=== PATIENT | female | born 1945 | race Asian ===

== ENCOUNTER 2017-01-24 15:10 | Emergency (ER) | payer MEDICARE, OTHER ==
[~2017-01-24] VITALS: Ht 157.5 cm; Wt 61.2 kg
[2017-01-24] MEDS ORDERED: amLODIPine BESYLATE 10 MG TABLET PO ONE (16:15)
--- NOTE | 2017-01-24 16:16 | ED.ADGEN ---
Past Medical History Past Medical History: High Cholesterol, Hypertension Past Surgical History: Other Additional Past Surgical Histo: thyroidectomy, leg surgery Alcohol Use: None Drug Use: None Adult General Chief Complaint Chief Complaint: HYPERTENSION HPI HPI Patient is a 71 year old woman, history of hypertension, hypercholesterolemia, hypothyroidism, who presents to the emergency department with a complaint of hypertension. Patient states that she was seen at [facility] this morning for cataract surgery, at that time her blood pressure was noted to be elevated, initially 205/95, then 233/102, and then one a , and she was sent to the emergency department for evaluation as they were unable to do the surgery due to her hypertensive state. Patient denies any complaints at this time, she states that she will "sometimes have some chest pain in the morning", but none today or currently, denies any weakness numbness or tingling, any vision changes aside from the block the blurriness from her cataracts, any headache, any nausea or vomiting, or any other complaints. She states she feels fine at this time, she states she has an appointment to follow-up with her doctor on 06 February. She states that she did take her metoprolol and her lisinopril this morning as directed. Review of Systems Review of Systems Constitutional: Denies fever or chills. [] Eyes: Denies change in visual acuity. [] HENT: Denies nasal congestion or sore throat. [] Respiratory: Denies cough or shortness of breath. [] Cardiovascular: Denies chest pain or edema. [] GI: Denies abdominal pain, nausea, vomiting, bloody stools or diarrhea. [] : Denies dysuria. [] Musculoskeletal: Denies back pain or joint pain. [] Integument: Denies rash. [] Neurologic: Denies headache, focal weakness or sensory changes. [] Endocrine: Denies polyuria or polydipsia. [] Lymphatic: Denies swollen glands. [] Psychiatric: Denies depression or anxiety. [] Current Medications Current Medications Current Medications Medications (Trade) Dose Ordered Sig/Genoveva Start Time Stop Time Status Last Admin Dose Admin Amlodipine Besylate (Norvasc) 10 mg 1X ONCE 01/24/17 16:15 01/24/17 16:16 DC 01/24/17 16:40 10 MG Hydrochlorothiazide (Microzide) 12.5 mg DAILY 01/25/17 09:00 01/25/17 09:00 DC Allergies Allergies Allergies Coded Allergies Type Severity Reaction Last Updated Verified No Known Drug Allergies 01/24/17 No Physical Exam Physical Exam Constitutional: Well developed, well nourished, no acute distress, non-toxic appearance. [] HENT: Normocephalic, atraumatic, bilateral external ears normal, oropharynx moist, no oral exudates, nose normal. [] Eyes: PERRLA, EOMI, conjunctiva normal, no discharge. [] Neck: Normal range of motion, no tenderness, supple, no stridor. [] Cardiovascular:Heart rate regular rhythm, no murmur, S1, S2, rubs or gallops. [] Lungs & Thorax: Bilateral breath sounds clear to auscultation, no wheezing, rhonchi, rales. No chest wall crepitus or tenderness. [] Abdomen: Bowel sounds normal, soft, no tenderness, no masses, no pulsatile masses. [] Skin: Warm, dry, no erythema, no rash. [] Back: No tenderness, no CVA tenderness. [] Extremities: No tenderness, no cyanosis, no clubbing, ROM intact, no edema. Negative Homans sign. [] Neurologic: Alert and oriented X 3, normal motor function, normal sensory function, no focal deficits noted. [] Psychologic: Affect normal, judgement normal, mood normal. [] Current Patient Data Vital Signs Vital Signs Date Time Temp Pulse Resp B/P Pulse Ox O2 Delivery O2 Flow Rate FiO2 01/24/17 17:27 50 16 198/94 100 Room Air 01/24/17 15:17 98.4 98.4 EKG EKG ECG: Rhythm strip: Sinus rhythm, heart rate of 51, no ectopy. As interpreted by me. [] Radiology/Procedures Radiology/Procedures Not indicated. [] Course & Med Decision Making Course & Med Decision Making Pertinent Labs and Imaging studies reviewed. (See chart for details) Patient with asymptomatic hypertension in the emergency department, blood pressure, 212/91 at time my evaluation, heart rate in the low 50s, to sinus bradycardia on the monitor. Patient denies any complaints currently, any complaints this morning. She states that she would like to be old follow-up with her doctor. I did discuss with the patient and her at bedside evaluation the ED versus an outpatient evaluation, at this point we all agree that outpatient evaluation was warranted as she has ache appointment coming up with her doctor and no complaints. I did speak with Dr. jorge, who states the patient's last blood pressure was 150/80, and the patient has had difficulty blood pressure control previously. She requested the patient's medication be adjusted, lisinopril and metoprolol be discontinued, and the patient be initiated on Tribenzor, with plan for the patient to be seen tomorrow at 1 PM by her nurse practitioner in the office. At this time although we do not have this combination medication, agreeable to give the patient amlodipine 10 mg, hydrochlorothiazide 12.5 mg, with a goal of lowering the patient's blood pressure, but not to aggressively as again she is asymptomatic in the emergency department, and she may have been existing in this hypertensive state without her knowledge our knowledge for some time. I did discuss this with patient and family at bedside, they are agreeable this plan, patient is anxious to be discharged home at this point. Patient did receive the medications as stated, repeat blood pressure was 198/95, she remains asymptomatic. She was given clear and detailed return precautions, medication instructions and return instructions , with which she did voice understanding and agreement. Patient discharged home in stable condition with plan to follow-up with her PCP tomorrow 1 PM, with prescription for Tribenzor, to discontinue her metoprolol and her lisinopril until she is further instructed, and to return to the ED for concerning symptoms if they develop. Dragon Disclaimer Dragon Disclaimer This electronic medical record was generated, in whole or in part, using a voice recognition dictation system. Departure Impression: Primary Impression: Hypertension Disposition: 01 HOME, SELF-CARE Condition: IMPROVED Scripts Olmesartan/Amlodipin/Hcthiazid (Tribenzor 40-10-25 Mg Tablet)1 Each Tablet1 Tab PO DAILY #30 TAB Ref 0 Prov:CHING PASTRANA DO 01/24/17 CHING PASTRANA DO Jan 24, 2017 16:16
[2017-01-24 17:27] VITALS: BP 198/94
[2017-01-24] MEDS ORDERED: OLME1TAB35 PO (17:54)
--- NOTE | 2017-01-25 07:02 | EKG ---
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
[2017-01-25] MEDS ORDERED: HYDROCHLOROTHIAZIDE 12.5 MG CAPSULE. PO SCH (09:00)
== END 2017-01-24 18:04 | disposition home or self-care (01) ==
LOC: ER 15:10
DX: I10 Essential (primary) hypertension (principal); E78.00 Pure hypercholesterolemia, unspecified
CPT/HCPCS: 93005; 99284

== ENCOUNTER → 2021-03-11 | Outpatient (CLI) | payer MEDICARE, MEDICAID ==
[2021-02-21 13:42] VITALS: BP 166/89
[~2021-03-11] MED LIST: AMLO-186 PO; CALC0.25 PO; CARV12.511 PO; CLON-77 PO; DOXY100T PO; LEVO75CA4 PO; LOVA40TA2 PO; MECL-75 PO; OLME1TAB23 PO; OLME1TAB35 PO; ONDA4TAB12 PO; OXYB5TAB10 PO; SERT-267 PO
--- NOTE | 2021-03-11 13:17 | RAD ---
EXAM: PET/CT SKULL BASE THROUGH MID THIGH. HISTORY: Lung cancer. TECHNIQUE: CT of the skull base through the mid thighs was performed for the purposes of attenuation correction. 12.3 mCi F-18 fluorodeoxyglucose were administered intravenously. Blood glucose level at the time of administration was 115 mg/dL. After an uptake period, positron emission tomography of the skull base through the mid thighs was performed. The PET and CT data were fused and interpreted in c ombination on a dedicated workstation. COMPARISON: 02/19/2021. FINDINGS: A 1.4 cm right upper lobe nodule now has small satellite nodules posterior to it that exten d toward the pleura. These are new since the prior study. It is hypermetabolic with maximum SUV 6.9. This is consistent with bronchogenic carcinoma. A pleural-based region of consolidation spans 4.3 x 2.9 cm transaxially. It is also hypermetabolic wi th maximum SUV 8.7. This is indeterminate. There are no hypermetabolic mediastinal lymph nodes. There is no evidence of distant metastatic disea se. Additional CT findings include, moderate centrilobular emphysema. There is a calcified granuloma in t he right lower lobe. There is a moderate pericardial effusion. Coronary atherosclerotic calcification s are noted. There are changes of bilateral cataract surgery. Moderately atrophic and contains small benign cysts. The main pancreatic duct is mildly dilated at 4 mm. A pancreatic parenchymal calcificat ions suggest prior pancreatitis. Infrarenal abdominal aortic ectasia measures 1.8 cm. There is no ane urysmal dilatation. IMPRESSION: 1. Hypermetabolic 1.4 cm right upper lobe nodule consistent with primary bronchogenic carcinoma. Smal l satellite nodules have developed posterior to it extends to the pleura since the prior exam. 2. A region of consolidation posteriorly in the superior segment of the right lower lobe is hypermeta bolic and unchanged since 02/17/2021. This may represent focal pneumonia or sterile inflammation, but malignancy is not excluded. Percutaneous biopsy could further differentiate. 3. No evidence of regional or distant metastatic disease. Electronically signed by: Luciano Man MD (03/11/2021 1:14 PM) [id number]
== END ==
LOC: PETSC 08:43
PROVIDERS: ATTEND Internal Medicine Pulmonary Disease
DX: R91.1 Solitary pulmonary nodule (principal)
CPT/HCPCS: 78815; A9552